=== PATIENT | female | born 1965 | race Caucasian/White ===

== ENCOUNTER 2018-08-29 06:36 | Day surgery (SDC) | payer OTHER ==
[~2018-08-29 06:36] MED LIST: GLUMETZA500 MG PO; LOSARTAN-HCTZ1 EAC2 PO
[2018-08-29] MEDS ORDERED: EC-NAPROSYN375 MG PO (10:49)
== END 2018-08-29 13:45 | disposition home or self-care (01) ==
LOC: CIR.AMB 06:36
DX: N95.0 Postmenopausal bleeding (principal)